=== PATIENT | female | born 2000 | race African-American/Black ===

== ENCOUNTER 2018-03-22 13:33 | Emergency (ER) | payer OTHER, SELFPAY ==
[2018-03-22] MEDS ORDERED: Ketorolac Tromethamine 30 MG/ML VIAL ONE (13:48)
[2018-03-22] MEDS ORDERED: Acetaminophen 500 MG TAB ONE (13:48)
== END 2018-03-22 14:43 | disposition home or self-care (01) ==
LOC: NAV ERS 13:33
DX: R09.1 Pleurisy (principal); B34.9 Viral infection, unspecified; D64.9 Anemia, unspecified; J45.909 Unspecified asthma, uncomplicated
CPT/HCPCS: 93005; 96372; J1885